=== PATIENT | male | born 1985 | race Asian ===

== ENCOUNTER 2020-12-28 12:31 | Emergency (ER) | payer OTHER ==
[~2020-12-28] VITALS: Ht 172.7 cm; Wt 72.6 kg
[2020-12-28 12:34] VITALS: BP 140/89
[2020-12-28] MEDS ORDERED: ONDA-24 SL (13:07)
[2020-12-28] MEDS ORDERED: MELA1TAB32 PO (13:07)
[2020-12-28 14:17] VITALS: BP 140/89
== END 2020-12-28 14:18 | disposition home or self-care (01) ==
LOC: MED 12:31
DX: G47.00 Insomnia, unspecified (principal); F17.290 Nicotine dependence, other tobacco product, uncomplicated; Z04.6 Encounter for general psychiatric examination, requested by authority; Z79.899 Other long term (current) drug therapy
CPT/HCPCS: 99283

== ENCOUNTER 2021-03-09 09:40 | Emergency (ER) | payer OTHER, SELFPAY ==
[~2021-03-09] VITALS: Ht 167.6 cm; Wt 77.1 kg
[~2021-03-09 09:40] MED LIST: MELA1TAB32 PO; ONDA-24 SL
[2021-03-09 09:50] VITALS: BP 138/73
--- NOTE | 2021-03-09 10:02 | NUR ---
PT AMBULATED TO BED 2
[2021-03-09] MEDS ORDERED: NACL 0.9% 1,000 ML IV ONE (10:05)
[2021-03-09] MEDS ORDERED: KETOROLAC 30 MG/ML VIAL IVP ONE (10:05)
--- NOTE | 2021-03-09 10:05 | NUR ---
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
--- NOTE | 2021-03-09 10:08 | NUR ---
35 Y/O MALE C/O NON-PRODUCTIVE COUGH AND DIZZINESS FOR 2 MONTHS AND ABD PAIN 6/10 DESCRIBES DULL RADIATING TO MIDABD. PT REPORTS HE HAS "LEUKEMIA GROWING IN ABD" AND INTERMITTENT CHEST PAIN AND SOB. DENIES FEVER/CHILLS. STATES +N/V. ABD IS SOFT, DISTENDED, BOWEL SOUNDS ACTIVE X4. DENIES PMH NKA
--- NOTE | 2021-03-09 10:24 | NUR ---
OBTAINED LABS VIA IV, WALKED TO LAB.
[2021-03-09 11:01] LABS: BASOPHILS # (AUTO) 0.1 K/uL (0.00-0.22); BASOPHILS % (AUTO) 1.2 % (0.0-2.0); EOSINOPHILS % (AUTO) 0.2 % (0.0-4.0); HEMATOCRIT 47.8 % (36-52); HEMOGLOBIN 16.7 g/dL (12.0-18.0); LYMPHOCYTES % (AUTO) 17.8 % (20.5-51.1); MEAN CORPUSCULAR HEMOGLOBIN 31 pg (27-31); MEAN CORPUSCULAR HGB CONC 35 g/dL (33-37); MEAN CORPUSCULAR VOLUME 89.1 fL (80-94); MONOCYTES # (AUTO) 0.9 K/uL (0.8-1.0); MONOCYTES % (AUTO) 7.7 % (1.7-9.3); NEUTROPHILS # (AUTO) 8.2 K/uL (1.8-7.7); NEUTROPHILS % (AUTO) 73.1 % (42.2-75.2); PLATELET COUNT (AUTO) 357 K/uL (140-450); RED BLOOD CELL COUNT(AUTO) 5.36 MIL/uL (4.20-6.10); RED CELL DISTRIBUTION WIDTH 13.4 % (11.6-13.7); WHITE BLOOD COUNT (AUTO) 11.2 K/uL (4.8-10.8)
[2021-03-09 11:15] LABS: ALBUMIN 4.2 g/dL (3.4-5.0); ANION GAP 10.7 (8-16); CARBON DIOXIDE 29.9 mmol/L (21-32); CREATININE 0.9 mg/dL (0.6-1.3); POTASSIUM 3.6 mmol/L (3.5-5.1); TOTAL BILIRUBIN 0.9 mg/dL (0.0-1.0)
--- NOTE | 2021-03-09 11:42 | NUR ---
DR. SALEEM AT PT BEDSIDE FOR FURTHER EVALUATION.
--- NOTE | 2021-03-09 11:53 | NUR ---
PT RESTING, VISIBLE EQUAL RISE AND FALL OF CHEST, VSS, WILL CONTINUE TO MONITOR.
[2021-03-09] MEDS ORDERED: AZIT250T4 PO (12:05)
[2021-03-09] MEDS ORDERED: PRED20TA5 PO (12:05)
[2021-03-09] MEDS ORDERED: IBUP-2213 PO (12:05)
[2021-03-09 12:15] VITALS: BP 140/81
--- NOTE | 2021-03-09 12:15 | NUR ---
Patient discharged with v/s stable. Written and verbal after care instructions given and explained. Patient alert, oriented and verbalized understanding of instructions. Ambulatory with steady gait. All questions addressed prior to discharge. ID band removed. Patient advised to follow up with PMD. Rx of ZITHROMAX, IBUPROFEN, PREDNISONE given. Patient educated on indication of medication including possible reaction and side effects. Opportunity to ask questions provided and answered.
== END 2021-03-09 12:15 | disposition home or self-care (01) ==
LOC: MED 09:40
DX: J18.9 Pneumonia, unspecified organism (principal); R11.2 Nausea with vomiting, unspecified; F17.200 Nicotine dependence, unspecified, uncomplicated; Z79.899 Other long term (current) drug therapy
CPT/HCPCS: 36415; 71045; 80053; 85025; 96361; 96374; 99284; J1885; J7030